=== PATIENT | female | born 1995 | race Two or more races ===

== ENCOUNTER 2024-08-07 20:38 | Emergency (ER) | payer SELFPAY ==
[~2024-08-07] VITALS: Ht 167.6 cm; Wt 61.2 kg
[2024-08-07] MEDS ORDERED: LORAZEPAM INJ 2 MG/ML VIAL ONE (21:09)
[2024-08-07] MEDS: IV NS 0.9% 1,000 ML BAG IV ONE (21:14)
[2024-08-07] MEDS: LORAZEPAM 4 MG/ML VIAL IV ONE (21:14)
[2024-08-07 21:34] LABS: BASOPHILS % (AUTO) 0.1 % (0.0-2.0); EOSINOPHILS # (AUTO) 0.2 K/uL (0.0-0.7); EOSINOPHILS % (AUTO) 3.3 % (0.0-6.0); HEMATOCRIT 35 % (33-45); HEMOGLOBIN 11.7 g/dL (11.5-14.8); LYMPHOCYTES # (AUTO) 0.8 K/uL (0.8-4.8); LYMPHOCYTES % (AUTO) 11.4 % (20.0-44.0); MEAN CORPUSCULAR HEMOGLOBIN 32 PG (26.0-33.0); MEAN CORPUSCULAR HGB CONC 33 g/dl (31.0-36.0); MEAN CORPUSCULAR VOLUME 95 fL (82-100); MONOCYTES # (AUTO) 0.5 K/uL (0.1-1.30); MONOCYTES % (AUTO) 7.9 % (2.0-12.0); NEUTROPHILS # (AUTO) 5.2 K/uL (1.8-8.9); NEUTROPHILS % (AUTO) 77.3 % (43.0-81.0); PLATELET COUNT (AUTO) 169 K/uL (150-450); RED CELL DISTRIBUTION WIDTH 12.9 % (11.5-15.0); WHITE BLOOD COUNT (AUTO) 6.7 K/uL (4.3-11.0)
[2024-08-07 21:47] LABS: CALCIUM, SERUM 8.1 mg/dL (8.5-10.1); CREATININE 0.7 mg/dL (0.6-1.3); POTASSIUM 3.4 mmol/L (3.5-5.1)
[2024-08-07 21:58] LABS: ALBUMIN 3.9 g/dL (3.4-5.0); BILIRUBIN,DIRECT 0.2 mg/dL (0.0-0.2); BILIRUBIN,TOTAL 0.7 mg/dL (0.2-1.0)
[2024-08-07 23:08] VITALS: BP 96/63; TEMP 98; O2SAT 100
== END 2024-08-07 23:12 | disposition home or self-care (01) ==
LOC: ER 20:41
DX: F41.9 Anxiety disorder, unspecified (principal); R10.84 Generalized abdominal pain; Z88.0 Allergy status to penicillin; Z20.822 Contact with and (suspected) exposure to COVID-19
CPT/HCPCS: 99284; 96374; 96361; 87426; 93005; 87804 ×2; 85025; 80048; 83690; 80076; 36415; J2060; J7030